=== PATIENT | female | born 1990 | race American Indian/Alaskan Native ===

== ENCOUNTER 2018-01-25 22:15 | Emergency (ER) | payer SELFPAY ==
[2018-01-25 22:40] VITALS: BP 133/105
[2018-01-26 00:02] LABS: HCG Qualitative,Urine Negative (Negative)
--- NOTE | 2018-01-26 02:54 | Emergency Department Report ---
ED General Adult HPI - General Chief complaint: Wound/Laceration Stated complaint: CELLULITIS RIGHT LEG Time Seen by Provider: 01/26/18 02:28 Source: patient Mode of arrival: Ambulatory Limitations: No Limitations - History of Present Illness Initial comments: Patient is a 27-year-old -[place] female with a history of cellulitis right lower extremity patient presents for right lower extremity cellulitis today patient states pain and aching started 2 days ago after insect bite now with increased redness there's associated aching no drainage no pus no fever chills nausea vomiting Onset/Timin -: week(s) Location: lower extremity Radiation: non-radiation Severity scale (0 -10): 4 Quality: aching Consistency: constant Improves with: none (nothing tried ) Worsens with: other (prolonged standing ) Associated Symptoms: denies: confusion, chest pain, cough, diaphoresis, fever/ chills, headaches, loss of appetite, malaise, nausea/vomiting, rash, seizure, shortness of breath, syncope, weakness Treatments Prior to Arrival: none - Related Data Previous Rx's Medication Instructions Recorded Last Taken Type Cephalexin [Keflex] 500 mg PO TID #30 capsule 01/26/18 Unknown Rx traMADol [Ultram] 50 mg PO Q6HR PRN #12 tablet 01/26/18 Unknown Rx Allergies Allergy/AdvReac Type Severity Reaction Status Date / Time vancomycin Allergy Hives Verified 01/25/18 22:41 ED Review of Systems ROS: Stated complaint: CELLULITIS RIGHT LEG Other details as noted in HPI Constitutional: denies: chills, fever Eyes: denies: eye pain, eye discharge, vision change ENT: denies: ear pain, throat pain Respiratory: denies: cough, shortness of breath, wheezing Cardiovascular: denies: chest pain, palpitations Endocrine: no symptoms reported Gastrointestinal: denies: abdominal pain, nausea, diarrhea Genitourinary: denies: urgency, dysuria, discharge Musculoskeletal: myalgia (right lower leg ). denies: back pain, joint swelling , arthralgia Skin: other (cellulitis RLQ). denies: rash, lesions Neurological: denies: headache, weakness, paresthesias Psychiatric: denies: anxiety, depression Hematological/Lymphatic: denies: easy bleeding, easy bruising ED Past Medical Hx - Past Medical History Additional medical history: hidradenitis - Surgical History Additional Surgical History: cyst removed - Social History Smoking Status: Never Smoker Substance Use Type: Alcohol - Medications Home Medications: Home Medications Medication Instructions Recorded Confirmed Last Taken Type Cephalexin [Keflex] 500 mg PO TID #30 capsule 01/26/18 Unknown Rx traMADol [Ultram] 50 mg PO Q6HR PRN #12 tablet 01/26/18 Unknown Rx ED Physical Exam - General Limitations: No Limitations General appearance: alert, in no apparent distress - Head Head exam: Present: atraumatic, normocephalic - Eye Eye exam: Present: normal appearance - ENT ENT exam: Present: mucous membranes moist - Neck Neck exam: Present: normal inspection - Respiratory Respiratory exam: Present: normal lung sounds bilaterally. Absent: respiratory distress - Cardiovascular Cardiovascular Exam: Present: regular rate, normal rhythm. Absent: systolic murmur, diastolic murmur, rubs, gallop - GI/Abdominal GI/Abdominal exam: Present: soft, normal bowel sounds. Absent: distended, tenderness, guarding, rebound, rigid, organomegaly, mass, bruit, pulsatile mass , hernia - Rectal Rectal exam: Present: deferred - Extremities Exam Extremities exam: Present: normal inspection - Back Exam Back exam: Present: normal inspection - Neurological Exam Neurological exam: Present: alert, oriented X3 - Psychiatric Psychiatric exam: Present: normal affect, normal mood - Skin Skin exam: Present: warm, dry, intact, normal color. Absent: rash ED Course Vital Signs 01/25/18 22:37 Temperature 98.1 F Pulse Rate 73 Respiratory 18 Rate Blood Pressure 133/105 O2 Sat by Pulse 96 Oximetry ED Medical Decision Making - Lab Data Laboratory Tests 01/25/18 23:27 Urine HCG, Qual Negative - Medical Decision Making pt appears well nontoxic, RLE cellulitis 3x3 cm irrigular no discharge no swelling no calf tenderness pt is ambulatory with steady gait, RLE mild erythema to insecte bite , local reaction there is no fever no discharge ppep+2 , plan: dc to home with abx keflex, ultram follow up with pcp [facility]. pt verbalizeda agreement and understanding of same. Critical care attestation.: If time is entered above; I have spent that time in minutes in the direct care of this critically ill patient, excluding procedure time. ED Disposition Clinical Impression: Cellulitis of leg, right Disposition: DC-01 TO HOME OR SELFCARE Is pt being admited?: No Does the pt Need Aspirin: No Condition: Good Instructions: Cellulitis (ED) Prescriptions: Cephalexin [Keflex] 500 mg PO TID #30 capsule traMADol [Ultram] 50 mg PO Q6HR PRN #12 tablet PRN Reason: Pain Referrals: [facility] [Outside] - 3-5 Days Forms: Work/School Release Form(ED) Time of Disposition: 03:07
[2018-01-26] MEDS ORDERED: ULTRAM PO ONE (03:08)
[2018-01-26] MEDS ORDERED: KEFLEX PO ONE (03:08)
== END 2018-01-26 03:20 | disposition home or self-care (01) ==
LOC: ED 22:15
DX: L03.115 Cellulitis of right lower limb (principal); Z88.1 Allergy status to other antibiotic agents
CPT/HCPCS: 81025; 99283